=== PATIENT | male | born 2000 | race African-American/Black ===

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

== ENCOUNTER 2021-02-13 22:14 | Emergency (ER) | payer OTHER, SELFPAY ==
[2021-02-13 23:11] VITALS: BP 130/67; PULSE 79; RESP 16; TEMP 36.6; O2SAT 100; BMI 30.7
--- NOTE | 2021-02-13 23:22 | ED.WOUNDLAC ---
HPI - Wound/Laceration General Chief Complaint: Wound/Laceration Stated Complaint: lt thumb lac Time Seen by Provider: 02/13/21 23:22 Source: patient and family Mode of arrival: ambulatory Limitations: no limitations History of Present Illness HPI narrative: 20-year-old male presents with laceration to the left thumb. Stated that he reach into a drawer and accidentally stabbed himself on a pair of open scissors. Father data analysis assistant son cleaning of wound and applying a pressure dressing. Onset (ago): hour(s) (Within the hour of arrival) Extremity Location: left: hand (thumb) Place: home Patient tetanus UTD: Yes Context: accidental Associated symptoms: pain Treatments prior to arrival: bandage Related Data Home Medications Medication Instructions Recorded Confirmed No Known Home Meds 11/23/20 11/23/20 Allergies Allergy/AdvReac Type Severity Reaction Status Date / Time No Known Allergies Allergy Verified 11/23/20 18:44 Review of Systems Review of Systems: Constitutional: No Fever, No Chills ENT/Mouth: No Ear Pain, No Hoarseness, No sore throat Eyes: No Eye Pain, No Swelling, No Redness, No Foreign Body Cardiovascular: No Chest Pain, No SOB Respiratory: No Cough, No Dyspnea Gastrointestinal: No Nausea, No Vomiting, No Diarrhea, No abdominal Pain Genitourinary: No Dysuria, No Hematuria Musculoskeletal: positive some pain, No Myalgias, No Joint Swelling Skin: Positive laceration to the left thumb,No rash Neuro: No Weakness, No Numbness, No Paresthesias, No Loss of Consciousness, No Dizziness, No Headache Psych: No Anxiety/Panic, No Depression Heme/Lymph: no easy bruising, no Lymphadenopathy Endocrine: No Polyuria, No Polydipsia Yes all other systems are reviewed and are negative [facility] Past Medical History Attestation statement: The following information was validated with the patient. Source: old records reviewed Medical History HTN (hypertension) Subaortic membrane Surgical History [place] teeth extracted Family History Family History Other Diabetes HTN (hypertension) Social History Social History Household Members: Family Housing: House Do you presently have visiting nurse or other home services: No Alcohol intake: never Patient Tobacco Use Status: Never used Tobacco Substance Use Type: Marijuana Advance Directives: No service: No Current occupational status: student Physical Exam Vital Signs: Vital Signs: Last Vital Signs Temp 97.8 F 02/13/21 23:11 Pulse 79 02/13/21 23:11 Resp 16 02/13/21 23:11 BP 130/67 02/13/21 23:11 Pulse Ox 100 02/13/21 23:11 BMI result Body Mass Index 30.7 Appearance: Alert. Oriented X3. Anxious. Eyes: Pupils equal, round and reactive to light. ENT: Pharynx normal. Neck: Normal inspection. Neck supple. CVS: Normal heart rate and rhythm. Pulses normal. Respiratory: No respiratory distress. Breath sounds normal. Abdomen: Soft and nontender. Skin: 4 cm laceration irregular to the left thumb, 1 cm laceration to the left thumb, Skin warm and dry. Normal skin color. Normal skin turgor. Extremities: Strength 5/5 to all digits, full range of motion to the thumb, no indication of tendon injury. Able to flex, extend, abduct and abduct without difficulty. Brisk capillary. Neuro: No motor deficit. No sensory deficit. Cranial nerves 2-12 intact. Extrem: Hand/finger images: 1. 4 cm irregular laceration 2. 1 cm linear laceration Course Course Course Narrative: 20-year-old male presents with 2 lacerations to the left thumb. Patient has a known needle phobia has significant anxiety and panic. Emotional support was provided. Digital block completed without difficulty tolerated well. Father was bedside throughout the entire procedure. Lacerations repaired without difficulty. Prepped and draped in sterile fashion. Irrigated with copious amounts of normal saline. Betadine cleanse. Approximately 30 minutes status post laceration repair, patient continues with brisk capillary refill and has full range of motion with no indication of tendon deficit. Patient will follow-up sutures removed. Patient verbalizes understanding of and agrees to plan of care discharge home MDM - Wound/Laceration Differential Diagnosis Differential diagnosis: Likely laceration Medical Records Attestation: I reviewed the patient's medical records. Procedures Laceration Laceration 1: Site: upper extremity (Left thumb) Side (If applicable): left Size (cm): 4 Description: irregular Depth: simple, single layer Local Anesthetic: lidocaine 2% Amount of anesthesia used (mL): 5 Pre-repair: wound explored, irrigated extensively and deep structures intact Skin layer closed with: nylon Size (cm): 4-0 Number of sutures: 6 Technique: simple, interrupted Laceration 2: Site: upper extremity (Left thumb) Side (If applicable): left Size (cm): 1 Description: linear Depth: simple, single layer Pre-repair: wound explored, irrigated extensively and deep structures intact Skin layer closed with: nylon Size (cm): 4-0 Number of sutures: 2 Technique: simple, interrupted Discharge Plan Discharge Clinical Impression: Laceration Patient Disposition: Home, Self-Care Instructions: Care For Your Stitches (ED), Finger Laceration (ED) Additional Instructions: You were evaluated for laceration to the left thumb. Please return in 10 days for suture removal. Keep the area clean and dry. You may wash your hands as needed. Do not soak your hand in water for prolonged periods of time. Do not swim or go into a hot tub until sutures are removed. Thank you for choosing this emergency department for evaluation. Please follow-up with primary care physician as needed. Return to the emergency department for any new, concerning, or worsening symptoms. Prescriptions: No Action No Known Home Meds RF: 0 Interventions: ED Discharge Assessment Last Done: 02/14/21 00:30 Discharge Date/Time: 02/14/21 00:32
[2021-02-14] MEDS: Lidocaine HCl 2 % MPF 5 ML VIAL SUBCUT (00:30)
== END 2021-02-14 00:32 | disposition home or self-care (01) ==
PROVIDERS: Emergency Provider Internal Medicine; PCP Pediatrics
DX: S61.012A Laceration without foreign body of left thumb without damage to nail, initial encounter (principal); W26.8XXA Contact with other sharp object(s), not elsewhere classified, initial encounter; Y93.9 Activity, unspecified; Y92.009 Unspecified place in unspecified non-institutional (private) residence as the place of occurrence of the external cause; Y99.9 Unspecified external cause status
CPT/HCPCS: 12002; 90471; 99283; 99284

== ENCOUNTER 2021-02-22 16:38 | Emergency (ER) | payer OTHER, SELFPAY ==
[2021-02-22 16:47] VITALS: BP 139/75; PULSE 68; RESP 16; TEMP 36.6; O2SAT 96; BMI 31.5
--- NOTE | 2021-02-22 16:55 | ED.WOUNDLAC ---
HPI - Wound/Laceration General Chief Complaint: Wound/Laceration Stated Complaint: stitch removal Time Seen by Provider: 02/22/21 16:55 History of Present Illness HPI narrative: Patient here for removal of stitches that were placed in his left hand 1 week ago he has no complaints Related Data Home Medications Medication Instructions Recorded Confirmed No Known Home Meds 11/23/20 11/23/20 Allergies Allergy/AdvReac Type Severity Reaction Status Date / Time No Known Allergies Allergy Verified 11/23/20 18:44 Review of Systems Review of Systems: Denies fever chills no joint pains no redness no swelling no discharge from wound Yes all other systems are reviewed and are negative PMFSH Past Medical History Source: nursing notes reviewed Medical History HTN (hypertension) Subaortic membrane Surgical History [place] teeth extracted Family History Family History Other Diabetes HTN (hypertension) Social History Social History Household Members: Family Housing: House Do you presently have visiting nurse or other home services: No Alcohol intake: never Patient Tobacco Use Status: Never used Tobacco Substance Use Type: Marijuana Advance Directives: No Advance Directives Information Provided: Yes service: No Current occupational status: student Physical Exam Vital Signs: Vital Signs: Last Vital Signs Temp 98 F 02/22/21 16:47 Pulse 68 02/22/21 16:47 Resp 16 02/22/21 16:47 BP 139/75 02/22/21 16:47 Pulse Ox 96 02/22/21 16:47 BMI result Body Mass Index 31.5 General appearance no distress Head is normocephalic atraumatic Neck is supple Respiratory no distress Extremities full range of motion x4 Left hand palmar surface there are sutures in place with no swelling no discharge no redness and full range of motion in all fingers Course Course Course Narrative: are removed with no wound dehiscence, no sign of infection Discharge Plan Discharge Clinical Impression: Visit for suture removal Patient Disposition: Home, Self-Care Additional Instructions: Sutures were removed and okay for all activities Return any concerns Prescriptions: No Action No Known Home Meds RF: 0 Interventions: ED Discharge Assessment Last Done: 02/22/21 17:07 Discharge Date/Time: 02/22/21 17:08
== END 2021-02-22 17:08 | disposition home or self-care (01) ==
PROVIDERS: Emergency Provider Internal Medicine; PCP Pediatrics
DX: Z48.02 Encounter for removal of sutures (principal); F12.90 Cannabis use, unspecified, uncomplicated
CPT/HCPCS: 99283

== ENCOUNTER 2021-03-04 14:11 | Outpatient (REF) | payer OTHER, SELFPAY ==
[2021-03-04 15:00] LABS: Binax Internal Control QC Valid; Binax Now Covid-19 Ag Negative (Negative)
== END 2021-03-04 14:12 | disposition home or self-care (01) ==
LOC: HO.LAB 14:11
PROVIDERS: Visit Provider Internal Medicine
DX: Z20.822 Contact with and (suspected) exposure to COVID-19 (principal)
CPT/HCPCS: C9803

== ENCOUNTER 2022-01-19 08:22 | Outpatient (REF) | payer OTHER, SELFPAY ==
[2022-01-19 12:19] LABS: Anion Gap 15 (12-20); Blood Urea Nitrogen 16 mg/dL (9-16); Calcium 9.9 mg/dL (8.4-10.2); Carbon Dioxide 26 mmol/L (22-29); Chloride 102 mmol/L (96-108); Cholesterol 179 mg/dL; Estimated Glomerular Filt Rate > 60; Glucose Fasting 88 mg/dL (60-99); HDL Cholesterol 41 mg/dL; LDL Cholesterol Calculated 122 mg/dl; Potassium 4.3 mmol/L (3.3-5.1); Sodium 139 mmol/L (135-145); Triglycerides 83 mg/dL
== END 2022-01-19 08:23 | disposition home or self-care (01) ==
LOC: HO.10HDL 08:22
PROVIDERS: Visit Provider Psychiatry & Neurology Neurology
DX: I67.9 Cerebrovascular disease, unspecified (principal)
CPT/HCPCS: 36415; 80048; 80061

== ENCOUNTER 2023-10-13 09:56 | Outpatient (AMB) | payer OTHER, SELFPAY ==
--- NOTE | 2023-10-13 10:01 | MHC.PC.OV ---
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 Cerebral microangiopathy. Autism & ADHD. SurgHx: Hydronephrosis and surgery. FHx: Mom: Depression/Anxiety, HTN, Colon Polyp. Dad: Asthma, obesity. GM: Early Colon CA. SocHx: Quit Cigs about 1 yr ago. EtOH none. No drugs PFSH Medical History (Updated 10/13/23 @ 11:09 by Min Flores) ADHD Subaortic membrane HTN (hypertension) Surgical History [place] teeth extracted Family History (Updated 10/13/23 @ 11:12 by Min Flores) Father Asthma Maternal Grandfather Asthma Other Diabetes FH: mental illness High blood pressure Social History (Updated 10/13/23 @ 10:01 by Min Flores) Household Members: Family Housing: House Do you presently have visiting nurse or other home services: No Alcohol intake: never Patient Tobacco Use Status: Never used Tobacco e-Cigarette/Vaping Use: Former Use Second Hand Smoke Exposure: No service: No Current occupational status: student Cognitive needs: Yes (autism/ADHD ) Hearing needs: No Vision needs: Yes Questionnaire PHQ-9 Over the last 2 weeks, how often have you been bothered by any of the following problems? 1. Little interest or pleasure in doing things: not at all 2. Feeling down, depressed, or hopeless: not at all 3. Trouble falling or staying asleep, or sleeping too much: not at all 4. Feeling tired or having little energy: several days 5. Poor appetite or overeating: not at all 6. Feeling bad about yourself - or that you are a failure or have let yourself or your family down: not at all 7. Trouble concentrating on things, such as reading the newspaper or watching television: not at all 8. Moving or speaking so slowly that other people could have noticed. Or the opposite - being so fidgety or restless that you have been moving around a lot more than usual: several days 9. Thoughts that you would be better off or of hurting yourself in some way: not at all Total score: 2 Depression Screening Interpretation: Negative Depression Screening Done: Yes [id number] - PHQ-9 Billing: Yes Source: Developed by Drs. Julio C Grullon, Ivelisse Beach, Roni Stout and colleagues, with an educational armando from [employer]. Thrive Questionnaire Date Thrive assessed: 10/13/23 I am a: Patient What is your living situation today?: I have a steady place to live Within the past 12 months, did the food you bought not last and you didn't have the money to get more?: Never true Within the past 12 months, did you worry whether your food would run out before you got money to buy more?: Never true Do you have trouble paying for medicines?: No Do you have trouble getting transportation to medical appointments?: No Do you have trouble paying your heating and electricity bill?: No Do you have trouble taking care of your child, family member or friend?: No Do you have trouble with day-to-day activities such as bathing, preparing meals, shopping, managing finances, etc.?: No Are you currently unemployed and looking for a job?: Yes Are you interested in more education?: No Please select the resources that you would like help with: None Currently or been in a relationship where the following occur: No concerns reported THRIVE Score: 0 AUDIT C Alcohol Use Questionnaire (AUDIT-C) 1. How often do you have a drink containing alcohol?: Never 3. How often do you have six or more drinks on one occasion?: Never Total Score: 0 Score Reviewed/Action Taken: Yes SILVIO-7 AMB Questionnaire SILVIO-7 Date SILVIO - 7 assessed: 10/13/23 Feeling nervous, anxious, or on edge: 0 = Not at all Not being able to stop or control worryin = Not at all Worrying too much about different things: 0 = Not at all Trouble relaxin = Not at all Being so restless that it is hard to sit still: 0 = Not at all Becoming easily annoyed or irritable: 2 = More than half the days Feeling afraid as if something awful might happen: 0 = Not at all Total SILVIO-7 score (0-4 normal; 5-9 mild; 10-14 moderate; 15-21 severe): 2 Source: Developed by Drs. Julio C Grullon, Ivelisse Beach, Roni Stout and colleagues, with an educational armando from [employer]. SILVIO-7 Assessment Billing SILVIO-7 Assessment Tool: SILVIO-7 Assessment 81690 Review of Systems Const Denies chills, Denies fatigue, Denies fever(s), Denies headache(s) and Denies weakness ENT Denies dizziness and Denies headache(s) Card Denies chest pain, Denies lightheadedness, Denies dyspnea and Denies other (Palpitations) Resp Denies cough, Denies dyspnea, Denies wheezing and Denies other ( shortness of breath) Musc Denies numbness and Denies tingling Neuro Denies dizziness, Denies headache(s), Denies numbness, Denies tingling, Denies paresthesias and Denies weakness Psych Denies anxiety and Denies depression Endo Denies fatigue Aller/Immun Denies wheezing Physical exam (Primary Care) Vital Signs: Last Vital Signs Temp 97.7 F 10/13/23 10:09 Pulse 87 10/13/23 10:09 Resp 18 10/13/23 10:09 BP 116/70 10/13/23 10:09 Pulse Ox 97 10/13/23 10:09 Oxygen Delivery Method Room Air 10/13/23 10:09 BMI result Body Mass Index 39.2 Tobacco/Smoking Status: Tobacco use Status Tobacco use date assessed 10/13/23 10/13/23 10:12 Patient Tobacco Use Status Never used Tobacco 10/13/23 10:04 e-Cigarette/Vaping Use Former Use 10/13/23 10:12 PHQ-9: PHQ-9 Score PHQ-9: Total score 2 10/13/23 10:38 Depression Screening Interpretation: Negative Thrive Assessment: Date of Thrive Assessment Date Thrive assessed 10/13/23 10/13/23 10:04 Currently or been in a relationship where the following occur: No concerns reported Const General: no acute distress and well developed Nutritional Appearance: well nourished Orientation/consciousness: patient oriented x3 HENMT Head: Yes normocephalic and Yes atraumatic Eyes General: appearance normal, both eyes and all related structures Pupils: Equal, round and reactive pupils present EOM: EOMs intact bilaterally Resp Effort & Inspection: normal respiratory effort Auscultation: clear to auscultation bilaterally Cardio Rate: regular rate Rhythm: regular rhythm Heart sounds: S1 normal heart sound present, S2 normal heart sound present, no gallops, Murmur heart sound present and no rubs Neuro General: patient oriented x3 and gait normal Cranial nerves: Yes Equal, round and reactive pupils present Psych Affect: normal affect Assessment and Plan Assessment & Plan (1) HTN (hypertension): Comment: Patient stopped taking his medications Code(s): I10 - Essential (primary) hypertension Plan: Patient?was?on?lisinopril-hydrochlorothiazide.??He?does?not?know?the?dose?and?did?not?bring?the?medication?with?him. Checking?with?his?pharmacy?and?we?can?add?this?in Encouraged?him?to?take?his?medication?consistently. (2) Obesity: Code(s): E66.9 - Obesity, unspecified Plan: Will?address?at?subsequent?visits. (3) Autism: Code(s): F84.0 - Autistic disorder Plan: Stable (4) Difficulty concentrating: Code(s): R41.840 - Attention and concentration deficit Plan: Mom?notes?history?of?ADHD.??He?had?been?on?medication?in?the?past.??Given?that?he?may?have?issues?with?microangiopathy?and?hypertension.??Would?recommend?he?have?a?specialist?if?he?is?needing?medication?for?this. (5) Subaortic membrane: Comment: Subaortic stenosis present since . 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 Patient?has?2/6?systolic?murmur?over?mitral?and?aortic?regions Will?check?echo (6) Heart murmur: Code(s): R01.1 - Cardiac murmur, unspecified Plan: As?above (7) Laboratory exam ordered as part of routine general medical examination: Code(s): Z00.00 - Encounter for general adult medical examination without abnormal findings Plan: Check?labs Plan Patient?describes?history?of?microangiopathy?and?had?been?followed?by?Neurology,?initially?for?ataxic?gait?which?resolved. He?is?on?lisinopril-hydrochlorothiazide. Will?start?a?low?dose?of?atorvastatin?as?well. Orders: Orders Lipid Panel Today Z00.00 - Encounter for general adult medical examination without abnormal findings TSH reflex Free T4 Today Z00.00 - Encounter for general adult medical examination without abnormal findings HIV Ab/Ag Today Z11.3 - Encounter for screening for infections with a predominantly sexual mode of transmission Vitamin B12 and Folate Today E53.8 - Deficiency of other specified B group vitamins Complete Blood Count Auto Diff Today Z00.00 - Encounter for general adult medical examination without abnormal findings Comprehensive [place]. 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
[2023-10-13 10:09] VITALS: BP 116/70; PULSE 87; RESP 18; TEMP 36.5; O2SAT 97; BMI 39.2
== END 2023-10-13 11:06 | disposition home or self-care (01) ==
PROVIDERS: PCP Family Medicine; Visit Provider Family Medicine
DX: I10 Essential (primary) hypertension (principal); E66.9 Obesity, unspecified; Z68.39 Body mass index [BMI] 39.0-39.9, adult; F84.0 Autistic disorder; R41.840 Attention and concentration deficit; Q24.4 Congenital subaortic stenosis; R01.1 Cardiac murmur, unspecified
CPT/HCPCS: 99203

== ENCOUNTER 2023-10-21 08:23 | Outpatient (REF) | payer OTHER, SELFPAY ==
[2023-10-21 08:50] LABS: MANUAL DIFF FLAG NO
[2023-10-21 09:07] LABS: Basophils Absolute Auto 0.1 X10*3/uL (0.0-0.2); Eosinophils Absolute Auto 0.1 X10*3/uL (0.0-0.4); Hematocrit 44.5 % (42.0-52.0); Hemoglobin 16.2 g/dl (14.0-18.0); Imm Gran Abs Auto 0.04 X10*3/uL (0.00-0.03); Imm Gran Pct Auto 0.6 % (0.0-0.4); Lymphocytes Absolute Auto 1.9 X10*3/uL (1.2-4.9); Lymphocytes Percent Auto 28.6 % (20-40); Mean Corpuscular HGB Conc 36.4 g/dl (31.0-36.0); Mean Corpuscular Hemoglobin 30.3 pg (27.0-33.0); Mean Corpuscular Volume 83.2 fL (80.0-98.0); Mean Platelet Volume 11.5 fL (9.4-12.4); Monocytes Absolute Auto 0.5 X10*3/uL (0.1-1.2); Monocytes Percent Auto 7.8 % (2-11); Neutrophils Absolute Auto 4.1 x10*3/uL (2.0-8.3); Platelet Count 204 X10*3/uL (160-400); Red Blood Count 5.35 X10*6/uL (4.60-5.80); Red Cell Distribution Width 12.1 % (11.0-16.0); White Blood Count 6.7 X10*3/uL (4.8-10.8)
[2023-10-21 09:49] LABS: Alanine Aminotransferase 100 U/L (0-40); Albumin Level 4.6 g/dL (3.5-5.0); Alkaline Phosphatase 107 U/L (39-117); Anion Gap 10 (12-20); Aspartate Amino Transferase 37 U/L (5-37); Bilirubin Total 0.5 mg/dL (0.0-1.0); Blood Urea Nitrogen 13 mg/dL (9-16); Calcium 9.8 mg/dL (8.4-10.2); Carbon Dioxide 27 mmol/L (22-29); Chloride 106 mmol/L (96-108); Cholesterol 156 mg/dL (<200); Estimated Glomerular Filt Rate > 60; Glucose Fasting 96 mg/dL (60-99); HDL Cholesterol 28 mg/dL (>40); LDL Cholesterol Calculated 110 mg/dL (<100); Potassium 4.1 mmol/L (3.3-5.1); Sodium 139 mmol/L (135-145); Total Protein 7.5 g/dL (6.5-8.0); Triglycerides 93 mg/dL (<150)
[2023-10-21 09:52] LABS: TSH reflex Free T4 2.13 uIU/mL (0.32-4.0)
[2023-10-21 09:57] LABS: HBS Num1 1.13 mIU/mL (0-7.99); HBc Num1 0.08 S/CO (0.00-0.79); HIV AB/AG Nonreactive (Nonreactive); HIV Num 1 0.05 S/CO (0.00-0.99); Hepatitis B Core Antibody Nonreactive (Nonreactive); Hepatitis B Surface Antigen Negative (Negative); ~HepC Num1 0.15 S/CO (0.00-0.79); ~Hepatitis B Surface Antibody NONREACTIVE (Nonreactive); ~Hepatitis C Antibody Nonreactive (Nonreactive)
[2023-10-21 09:58] LABS: Syphilis Screen Nonreactive (Nonreactive)
[2023-10-21 10:01] LABS: Folate 8.4 ng/mL (> or = 4.0); Vitamin B12 679 pg/mL (200-900)
[2023-10-21 12:45] LABS: Creatinine Urine 169.31 mg/dL; Microalbum/Creatinine Ratio Ur 34.8 ug/mg cr (<30)
== END 2023-10-21 08:24 | disposition home or self-care (01) ==
LOC: HO.LAB 08:23
PROVIDERS: PCP Family Medicine; Visit Provider Family Medicine
DX: Z00.00 Encounter for general adult medical examination without abnormal findings (principal); E53.8 Deficiency of other specified B group vitamins; Z11.3 Encounter for screening for infections with a predominantly sexual mode of transmission; I10 Essential (primary) hypertension
CPT/HCPCS: 36415; 80053; 80061; 82043; 82570; 82607; 82746; 84443; 85025; 86704; 86706; 86780; 86803; 87340; 87389

== ENCOUNTER → 2023-11-25 07:49 | Outpatient (REF) | payer OTHER, SELFPAY ==
--- NOTE | 2023-11-25 07:52 | CA_ITS ---
Transthoracic Echocardiogram Patient (Last, First, Middle): Brandon Mujica, Gender: Male Date of : 2000 Age: 22 Procedure Date: 11/25/2023 Procedure Type: Transthoracic Echocardiogram Location: OP Height: 182.88 cm Weight: 127.01 kg BSA: 2.46 m2 Heart Rate: bpm BP: 130 / 82 mmHg Stone Breaker: TO Referring MD: Óscar Galaviz MD Contact Center Team Lead: Amrit Urena MD Symptoms: R01.1 - Cardiac murmur, unspecified Study Quality: Technically Difficult/Contrast ECG Rhythm: Sinus Conclusions: - 1. Technically limited study 2. Normal LV ejection fraction 65-70% 3. Cardiac valvular Doppler was within normal limits Findings Procedure Information The study quality is limited by the patients inability to tolerate the test and patients body habitus. Left Ventricle Normal left ventricular size, thickness, and systolic function. The visually estimated ejection fraction is between 65-70%. Spectral Doppler is indicative of a normal filling pattern. Right Ventricle Normal right ventricular cavity size and systolic function. Atria The left atrium is normal in size. Interatrial shunt cannot be excluded. The right atrium was not well visualized. Aortic Valve The aortic valve was not well visualized. There is no aortic valve stenosis. There is no aortic valve regurgitation. Mitral Valve Likely normal mitral valve structure and function. There is no mitral valve regurgitation. There is no mitral valve stenosis. Pulmonic Valve The pulmonic valve was not well visualized. Tricuspid Valve The tricuspid valve was not well visualized. Tricuspid regurgitation envelope is inadequate for calculation of right ventricular systolic pressure. Great Vessels All visible segments of the aorta are normal in size. The pulmonary artery was not well visualized. There is no dilatation of the ascending aorta measuring 2.00 cm. Venous The inferior vena cava is normal in size. Pericardium/Pleural The pericardium was not well visualized. Prior Study Comparison No prior study available for comparison. Measurements 2D Linear Measurements IVSd: 0.90 0.6-0.9/0.6-1.0 cm LVIDd: 4.65 3.9-5.3/4.2-5.9 cm LVIDd Index: 1.89 2.4-3.2/2.2-3.1 cm/m2 LVIDs: 2.65 2.0-3.6 cm LVPWd: 0.99 0.7-1.1 cm LA Diam: 3.50 2.7-3.8/3.0-4.0 cm LAIDs Index: 1.42 1.5-2.3 cm/m2 LV Mass: 187.28 67-162/88-224 g LV Mass Index: 76.13 43-95/49-115 g/m2 LVOT Diam: 2.10 3.0+(-)1.3 cm 2D Systolic Function EF 4C: 64.20 >55% EF 2C: 65.50 >55% EF BiP: 66.00 >55% Mitral Valve MV Pk E: 0.89 MV PK A: 0.42 MV Decel Time: 192.00 E/A: 2.10 E'Lateral: 13.10 E'Medial: 12.40 E/E' Med: 7.20 E/E' Lat: 6.80 PHT: 56.00 MVA PHT: 3.93 Decel [place]: 4.62 Aortic Valve AoV Pk Amandeep: 1.95 AoV Mn Amandeep: 1.27 AoV VTI: 0.38 AoV Pk Grad: 15.00 Aov Mn Grad: 8.00 HALLEY Cont.VTI: 3.33 LVOT LVOT Pk Amandeep: 1.94 LVOT Mn Amandeep: 1.21 LVOT VTI: 0.36 LVOT Pk Grad: 15.00 LVOT Mn Grad: 7.00 LVOT Diam: 2.10 LVOT Area: 3.46 Diastolic Function MV Pk E: 0.89 MV Pk A: 0.42 E/A: 2.10 E'Medial: 12.40 E/E' Med: 7.20 E' Laterial: 13.10 E/E' Lat: 6.80 Right Ventricle TAPSE (mm): 24.40 TVS' Amandeep: 12.70 Tricuspid Valve RA Press: 3.00 Great Vessels Aorta Sinus of Valsalva: 2.77 2.0-3.[address] [place]: 2.24 1.7-3.4 cm Ao Asc: 2.00 2.1-3.4 cm Ao Arch: 2.70 Updated in Other Vendor System with Status of Final Amrit Urena MD electronically signed on 11/25/2023 1:56:02 PM with status of Final
== END ==
LOC: HO.CARD 07:49
PROVIDERS: PCP Family Medicine; Visit Provider Family Medicine
DX: R01.1 Cardiac murmur, unspecified (principal); Q24.4 Congenital subaortic stenosis
CPT/HCPCS: 93306; Q9957

== ENCOUNTER → 2023-11-25 07:52 | Outpatient (BNV) | payer OTHER, SELFPAY | PROVIDERS: PCP Family Medicine; Visit Provider Internal Medicine Cardiovascular Disease | DX: R01.1 Cardiac murmur, unspecified (principal) | CPT/HCPCS: 93306 ==

== ENCOUNTER 2024-04-18 08:58 | Outpatient (AMB) | payer OTHER, SELFPAY ==
--- NOTE | 2024-04-18 09:18 | MHC.PC.OV ---
Vital Signs 04/18/24 09:22 Height 6 ft Weight 275 lb 6 oz BMI 37.3 BP 116/66 Blood Pressure Location Rt brachial Position Sitting Respiration 14 Pulse 63 Pulse Source Pulse Oximeter Temp 98.4 F Temp Source Oral Pulse Oximetry (%) 98 Oxygen Delivery Method Room Air Intake Visit Reasons: Annual physical Intake Note: Annual Skills Auditor Required: No Allergies No Known Allergies Allergy (Verified 04/18/24 09:21) Tobacco use date assessed: 04/18/24 Dental Screening Dental Screen Date: 04/18/24 Did you have a dental visit in the last 12 months?: Yes Did you have a dental problem in the last 6 months where you did not have access to dental care?: No Was dental information given to patient?: No HPI Annual physical HPI Details 23 y/o male presents for a CPE with f/u labs and health maintenance. Labs drawn 10/21/23. Reviewed labs with pt. Elevated ALT of 100. Triglycerides 93. TC 156. LDL 110. HDL low at 28. He is on artovastatin 10mg daily. Blood pressure today 116/66, 63p. He is prescribed lisinopril-HCTZ 10-12.5mg daily. [facility] Medical History (Updated 04/18/24 @ 09:32 by Freddy Shrestha) ADHD Subaortic membrane HTN (hypertension) Surgical History [place] teeth extracted Family History (Updated 10/13/23 @ 11:12 by SPENCER Smiley) Father Asthma Maternal Grandfather Asthma Other Diabetes FH: mental illness High blood pressure Social History (Updated 10/13/23 @ 10:01 by SPENCER Smiley) Household Members: Family Housing: House Do you presently have visiting nurse or other home services: No Alcohol intake: never Patient Tobacco Use Status: Never used Tobacco e-Cigarette/Vaping Use: Former Use Second Hand Smoke Exposure: No service: No Current occupational status: student Cognitive needs: Yes (autism/ADHD ) Hearing needs: No Vision needs: Yes Questionnaire PHQ-9 Over the last 2 weeks, how often have you been bothered by any of the following problems? 1. Little interest or pleasure in doing things: not at all 2. Feeling down, depressed, or hopeless: not at all 3. Trouble falling or staying asleep, or sleeping too much: not at all 4. Feeling tired or having little energy: not at all 5. Poor appetite or overeating: not at all 6. Feeling bad about yourself - or that you are a failure or have let yourself or your family down: not at all 7. Trouble concentrating on things, such as reading the newspaper or watching television: several days 8. Moving or speaking so slowly that other people could have noticed. Or the opposite - being so fidgety or restless that you have been moving around a lot more than usual: not at all 9. Thoughts that you would be better off or of hurting yourself in some way: not at all Total score: 1 Depression Screening Interpretation: Negative Depression Screening Done: Yes 50979 - PHQ-9 Billing: Yes Source: Developed by Drs. Julio C Grullon, Ivelisse Beach, Roni Stout and colleagues, with an educational armando from [employer]. Thrive Questionnaire Date Thrive assessed: 04/18/24 I am a: Patient What is your living situation today?: I have a steady place to live Within the past 12 months, did the food you bought not last and you didn't have the money to get more?: Never true Within the past 12 months, did you worry whether your food would run out before you got money to buy more?: Sometimes True Do you have trouble paying for medicines?: No Do you have trouble getting transportation to medical appointments?: No Do you have trouble paying your heating and electricity bill?: No Do you have trouble taking care of your child, family member or friend?: No Do you have trouble with day-to-day activities such as bathing, preparing meals, shopping, managing finances, etc.?: No Are you currently unemployed and looking for a job?: Yes Are you interested in more education?: No Please select the resources that you would like help with: Job search/training Currently or been in a relationship where the following occur: No concerns reported THRIVE Score: 1 AUDIT C Alcohol Use Questionnaire (AUDIT-C) 1. How often do you have a drink containing alcohol?: Never 3. How often do you have six or more drinks on one occasion?: Never Total Score: 0 Score Reviewed/Action Taken: Yes SILVIO-7 AMB Questionnaire SILVIO-7 Date SILVIO - 7 assessed: 04/18/24 Feeling nervous, anxious, or on edge: 0 = Not at all Not being able to stop or control worryin = Not at all Worrying too much about different things: 0 = Not at all Trouble relaxin = Several days Being so restless that it is hard to sit still: 0 = Not at all Becoming easily annoyed or irritable: 1 = Several days Feeling afraid as if something awful might happen: 0 = Not at all Total SILVIO-7 score (0-4 normal; 5-9 mild; 10-14 moderate; 15-21 severe): 2 Source: Developed by Drs. Julio C Grullon, Ivelisse Beach, Roni Stout and colleagues, with an educational armando from [employer]. SILVIO-7 Assessment Billing SILVIO-7 Assessment Tool: SILVIO-7 Assessment 95302 Review of Systems Const Denies chills, Denies fatigue, Denies fever(s), Denies headache(s) and Denies weakness Eyes Denies change in vision ENT Denies dizziness and Denies headache(s) Card Denies chest pain, Denies lightheadedness, Denies dyspnea and Denies other (Palpitations) Resp Denies cough, Denies dyspnea, Denies wheezing and Denies other ( shortness of breath) GI Denies abdominal pain, Denies melena, Denies hematochezia, Denies change in bowel habits, Denies dyspepsia and Denies nausea Denies hematuria and Denies dysuria Musc Denies numbness and Denies tingling Skin/Breast Denies rash, Denies unusual bruising and Denies wounds Neuro Denies dizziness, Denies headache(s), Denies numbness, Denies Sensory deficit (Neuro), Denies tingling, Denies paresthesias and Denies weakness Psych Denies anxiety and Denies depression Endo Denies fatigue Sae/Lymph Denies easy bleeding and Denies easy bruising Aller/Immun Denies wheezing Physical exam (Primary Care) Tobacco/Smoking Status: Tobacco use Status Tobacco use date assessed 10/13/23 04/18/24 09:18 Patient Tobacco Use Status Never used Tobacco 04/18/24 09:18 e-Cigarette/Vaping Use Former Use 04/18/24 09:18 PHQ-9: PHQ-9 Score PHQ-9: Total score 1 04/18/24 09:18 Depression Screening Interpretation: Negative Thrive Assessment: Date of Thrive Assessment Date Thrive assessed 10/13/23 04/18/24 09:18 Currently or been in a relationship where the following occur: No concerns reported Const General: no acute distress and well developed Nutritional Appearance: well nourished Orientation/consciousness: patient oriented x3 HENMT Head: Yes normocephalic and Yes atraumatic Ears: hearing grossly normal bilaterally and TM's normal bilaterally General nose exam: Normal external nose present and Normal nares present Mouth: Normal oral and palatal mucosa present and moist mucous membranes Teeth and gingiva: dentition normal Throat: Yes posterior oropharynx normal Eyes General: appearance normal, both eyes and all related structures Pupils: Equal, round and reactive pupils present EOM: EOMs intact bilaterally Neck Neck: Yes normal visual inspection, Yes no lymphadenopathy and Yes trachea midline Thyroid: Thyroid normal Carotids: no bruits Lymphatic: no lymphadenopathy noted Chest Chest palpation & inspection: normal inspection of the chest Resp Effort & Inspection: normal respiratory effort Auscultation: clear to auscultation bilaterally Cardio Rate: regular rate Rhythm: regular rhythm Heart sounds: S1 normal heart sound present, S2 normal heart sound present, no gallops, no murmurs and no rubs Bruits: no abdominal aortic bruits and no carotid bruits GI Palpation (GI): No Abdominal aortic bruit present, Soft to palpation, nontender, No hepatosplenomegaly present and No Rebound tenderness present Auscultation: normal bowel sounds General: Yes no CVA tenderness Back/Spine/Pelvis Back: no CVA tenderness Cervical Spine: cervical ROM normal and No Cervical spine tenderness Thoracic/Lumbar Spine: thoraco-lumbar ROM normal, No pain with thoraco-lumbar ROM, No thoracic spinal tenderness and No lumbar spinal tenderness Skin Lesions: no lesions Rashes: no rashes Trauma: no lacerations or abrasions Wounds: no wounds Nails: normal Neuro General: patient oriented x3 and gait normal Cranial nerves: Yes Equal, round and reactive pupils present Cognition (Neuro): normal cognition Gait exam (Neuro): Normal gait present Motor exam (neuro): 5/5 motor strength present throughout Sensory Exam: No Sensory deficit (Neuro) Deep tendon reflexes (DTR's): Right patellar reflex intensity grade: 2+ and Left patellar reflex intensity grade: 2+ Extrem General: Yes normal to inspection and No edema Psych Appearance: grossly normal Affect: normal affect Attitude: cooperative Thought process: Normal thought process present Coding Level of Care Code Est Pt Level 3 (54897) Est Pt Prev Care 18-39y(96543) Diagnoses Adult general medical exam Z00.00 HTN (hypertension) I10 Elevated ALT measurement R74.01 Elevated LDL cholesterol level E78.00 Low HDL (under 40) E78.6 Additional Codes SILVIO-7 Assessment Billing - SILVIO-7 Assessment Tool: SILVIO-7 Assessment 50626 ([id number]) PHQ-9 - 49905 - PHQ-9 Billing: Yes ([id number]) Assessment & Plan Assessment & Plan (1) Adult general medical exam: Code(s): Z00.00 - Encounter for general adult medical examination without abnormal findings Category: Medical Plan: 23-year-old?male?presents?for?complete?physical?exam Encouraged?healthy?diet?with?active?lifestyle?and?plenty?of?exercise (2) HTN (hypertension): Code(s): I10 - Essential (primary) hypertension Category: Medical Plan: Blood?pressure?is?well?controlled.??Goal?is?less?than?130/80 Continue?current?medications (3) Elevated ALT measurement: Code(s): R74.01 - Elevation of levels of liver transaminase levels Category: Medical Plan: Elevated?ALT Patient?does?not?drink?or?use?much?Tylenol He?is?obese Encouraged?weight?loss,?exercise?and?good?hydration Will?recheck?liver?enzymes (4) Elevated LDL cholesterol level: Code(s): E78.00 - Pure hypercholesterolemia, unspecified Category: Medical Plan: LDL?cholesterol?is?a?little?high?but?he?had?only?been?on?atorvastatin?week?when?labs?drawn. Will?repeat?this (5) Low HDL (under 40): Code(s): E78.6 - Lipoprotein deficiency Category: Medical Plan: Encouraged?exercise/active?lifestyle Orders: Orders Microalbumin, Random (w Creat) Today I10 - Essential (primary) hypertension Lipid Panel Today E78.00 - Pure hypercholesterolemia, unspecified, Z00.00 - Encounter for general adult medical examination without abnormal findings Comprehensive [place]. Panel Fast Today R74.01 - Elevation of levels of liver transaminase levels, Z00.00 - Encounter for general adult medical examination without abnormal findings
[2024-04-18 09:22] VITALS: BP 116/66; PULSE 63; RESP 14; TEMP 36.9; O2SAT 98; BMI 37.3
--- OUTSIDE RECORDS SUMMARY | 2024-04-18 09:42 | XMS_ITS | Encounter Summary ---
Author Organization [facility] Address [address] [place] [address] Phone Care Team Providers Care Instructional Design Consultant Name Role Phone Provider, Jhonatan ARAMBULA Primary Care Provider [phone] Encounter Details Date Type Department Care Team (Late st Contact Info) Description 01/20/2010 Documentation [facility] [place] Family Medicine [address] [place] [address] Family Medicine, Physician [address] [place] [address] Social History Tobacco Use Types Packs/Day Years Used Date Smoking Tobacco: Never Assessed Sex and Gender Information Value Date Recorded Sex Assigned at Male 04/23/2022 12:43 PM EST Legal Sex Male 5:02 PM EDT Gender Identity Male 04/23/2022 12:43 PM EST Sexual Orientation Not on file documented as of this encounter Plan of Treatment Not on file documented as of this encounter Visit Diagnoses Not on filedocumented in this encounter Care Teams Instructional Design Consultant Relationship Specialty Start Date End Date Provider, MD Jhonatan [address] [place] [address] PCP - General Pediatrics 09/30/22 12/22/22 documented as of this encounter
--- OUTSIDE RECORDS SUMMARY | 2024-04-18 09:42 | XMS_ITS | Encounter Summary ---
Author Organization [facility] Address [address] [place] [address] Phone Care Team Providers Care Foreman/Pile Driving And Erection Name Role Phone Provider, Jhonatan ARAMBULA Primary Care Provider [phone] Encounter Details Date Type Department Care Team (Late st Contact Info) Description 06/17/2009 Documentation [facility] [place] Family Medicine [address] [place] [address] Family Medicine, Physician [address] [place] [address] Social History Tobacco Use Types [...] on filedocumented in this encounter Care Teams Foreman/Pile Driving And Erection Relationship Specialty Start Date End Date Provider, MD Jhonatan [address] [place] [address] PCP - General Pediatrics 09/30/22 12/22/22 documented as of this encounter
--- OUTSIDE RECORDS SUMMARY | 2024-04-18 09:42 | XMS_ITS | Encounter Summary ---
Author Organization [facility] Address [address] [place] [address] Phone Care Team Providers Care Commercial Energy Rater Name Role Phone Provider, Jhonatan ARAMBULA Primary Care Provider [phone] Reason for Visit * Reason Comments Med Refill Encounter Details Date Type Department Care Team (Late st Contact Info) Description 09/01/2022 Refill [facility] [place] [address] [place] [address] Maylin Fine MD [address] [facility] [address] [place] [address] Hypertension, unspecified type (Primary Dx); Cerebral microvascular disease; Class 2 severe obesity due to excess calories with serious comorbidity and body mass index (BMI) of 37.0 to 37.9 in adult; On statin therapy Social History Tobacco Use Types Packs/Day Years Used Date Smoking Tobacco: Never Smokeless Tobacco: Never Comments:Never smoker Alcohol Use Standard Drinks/Week Comments Never 0 (1 standard drink = 0.6 oz pur e alcohol) Hunger/Food Answer Date Recorded In the last 12 months, did y ou or your family ever eat less than you felt you should because there wasn't enough money for food? No 04/22/2022 Stable Housing Answer Date Recorded Are you worried that in the next 2 months you may not have stable housing? No 04/22/2022 Transportation Concerns Answer Date Rec orded In the last 12 months, have you or your family ever had to go without healthcare because you didn't have a way to get there? No 04/22/2022 Hazards in Home Answer Date Recorded Think about the place you li ve. Do you have problems with any of the following? Pests (mice or roaches), mold, no/not working smoke detectors, water leaks, no window guards. No 2022 Financing Utilities Answer Date Recorde d In the last 12 months, has t he electric, gas, oil, or water company threatened to shut off your services in your home? No 04/22/2022 Safety at Home Answer Date Recorded Are you or your family worried about feeling saf e in your home? No 04/22/2022 Outside Support Answer Date Recorded Do you feel that you need mo re support from other people or programs to help you care for yourself or your family? No 04/22/2022 Understanding Health Concerns Answer Da te Recorded Do you need help understandi ng your or your child's healthcare needs (diagnosis, medications, plan, etc.)? No 04/22/2022 Financing Health Concerns Answer Date R ecorded In the last 12 months, was t here a time when your child needed to see a doctor or get medications or supplies but could not because of cost? No 04/22/2022 Missing School or Work Answer Date Humberto rded Did you or your child miss s chool or work because of a health problem that could have been avoided? No 04/22/2022 Sex and Gender Information Value Date Recorded Sex Assigned at Male 04/23/2022 12:43 PM EST Legal Sex Male 5:02 PM EDT Gender Identity Male 04/23/2022 12:43 PM EST Sexual Orientation Not on file documented as of this encounter Miscellaneous Notes * Telephone Encounter - Alexis Cross LPN - 09/02/2022 11:14 AM EDT Call placed regarding [place] message. Left message to call office regarding refill request * Telephone Encounter - Maylin Fine MD - 09/02/2022 11:09 AM EDT Rosuvastatin is a statin - a cholesterol lowering medication, and is not a drug class that we manage in Pediatrics. I will consider taking this over very briefly ( a singe 90 day RX) while mother isurgently searching for an adult provider to assume his full care. His blood pressure medication hasalways been prescribed by his glove examiner, but could most likely also be managed by his new adult PCP. I will need a current fasting lipid panel and liver function testing done before this can be refilled, so will enter the orders and mother can take Brandon to the lab this week. Then we should have a 15min virtual visit next week to discuss results and plan. * Telephone Encounter - Hari Campoverde LPN - 09/01/2022 1:53 PM EDT Spoke to Dr Alvarez's office and they state that he wants the primary to fill from now on. The note did not specify why. Also pt's mom is calling, she states that the insurance company is no longer dealing with [facility]. She would like scripts sent to [facility] on [facility]. * Telephone Encounter - Hari Campoverde LPN - 09/01/2022 11:56 AM EDT Spoke to pt's mom with pt's permission and she states that Dr Alvarez won't fill pt's blood pressuremedication and she doesn't know why. She states that Dr Alvarez also prescribed a cholesterol medication for pt and he filled that but won't fill the bp med. Mom also states that they have an apt withDr Alvarez this week.. Tried calling Dr Alvarez's office at [phone] but they are currently closed. Will try again after lunch. * Telephone Encounter - Hari Campoverde LPN - 09/01/2022 11:45 AM EDT Refill request for rosuvastatin 10 mg. This was not prescribed by us before. Spoke to pharmacy and they state that Dr Alvarez called and requested that this be sent to us. Left a message on pt's cell # as well to find out why this was sent to us to refill. Brandon cell # [phone] documented in this encounter Plan of Treatment Not on file documented as of this encounter Visit Diagnoses Diagnosis Hypertension, unspecified type- Primary Cerebral microvascular disease Unspecified cerebrovascular disease Class 2 severe obesity due to excess calories with serious comorbidity and body mass index (BMI) of 37.0 to 37.9 in adult On statin therapy documented in this encounter Care Teams Commercial Energy Rater Relationship Specialty Start Date End Date Provider, MD Jhonatan [address] [place] [phone] PCP - General Pediatrics 09/30/22 12/22/22 documented as of this encounter
--- OUTSIDE RECORDS SUMMARY | 2024-04-18 09:42 | XMS_ITS | Encounter Summary ---
Author Organization [facility] Address [address] [place] [phone] Phone Care Team Providers Care Stereotyper Helper Name Role Phone Provider, Jhonatan ARAMBULA Primary Care Provider [phone] Encounter Details Date Type Department Care Team (Late st Contact Info) Description 10/08/2016 Conversion Encounter [facility] [address] [place], [place] [id number] Social History Tobacco Use Types Packs/Day Years Used Date Smoking Tobacco: Never Comments:Never smoker Sex and Gender Information Value Date Recorded Sex Assigned at Male 04/23/2022 12:43 PM EST Legal Sex Male 5:02 PM EDT Gender Identity Male 04/23/2022 12:43 PM EST Sexual Orientation Not on file documented as of this encounter Plan of Treatment Not on file documented as of this encounter Visit Diagnoses Not on filedocumented in this encounter Care Teams Stereotyper Helper Relationship Specialty Start Date End Date Provider, MD Jhonatan [address] [place] [phone] PCP - General Pediatrics 09/30/22 12/22/22 documented as of this encounter
--- OUTSIDE RECORDS SUMMARY | 2024-04-18 09:42 | XMS_ITS | Clinical Summary ---
Author Organization [facility] Address [address] [place] [address] Phone Care Team Providers Care Member Of Parliament Name Role Phone Unavailable Primary Care Provider Unavailabl e Allergies No known active allergies Medications loratadine 10 MG tabletIndications:Seas onal and perennial allergic rhinoconjunctivitis of both eyes Take 1 tablet (10 mg total) by mouth daily. 30 tablet 11 08/30/19 21 Active Additional Information Patient not taking.Reported on 11/27/2020 lisinopril-hydrochloro thiazide 10-12.5 MG per tablet Take 1 tablet by mouth. 11/29/19 21 Active rosuvastatin 10 MG tablet Take 10 mg by mouth once daily. 02/25/19 23 Active Active Problems Problem Noted Date Diagnosed Date COVID-19 vaccination declined 04/23/2022 Medical non-compliance 04/23/2022 Overview (04/23/2022): Brandon's continued struggles with anti-hypertensive medication non-compliance despite his recent dx of CMVD worrisome. Cont to revisit. Refused influenza vaccine 02/05/2022 Overview (02/05/2022): See 12/17/2020 visit Assessment & Plan (04/22/2022 4:20 PM EST): Declined today Cerebral microvascular disease 11/28/2020 Overview (04/23/2022): 11/2020: [facility] admit for acute ataxia, self resolving, Lyme negative, oligoclonal bands on CSF+. MRI with findings of mild cerebral microvascular disease. Dr Alvarez/ Neurology [facility] following-last seen 01/2022 BP 140/80s, Brandon off his BP meds again. Normal BMP, TC 179, HDL 41- recommended statin ,resume BP meds RTC 6 mo Assessment & Plan (04/23/2022 12:08 PM EST): Still struggling with med compliance and BP elevated today, but no symptoms. Now on Rosuvastatin and tolerating well- started 01/[address] Alvarez/[facility] Neurologist. Next f/up planned 07/2022. Needle phobia 08/28/2020 Assessment & Plan (04/23/2022 12:31 PM EST): Compromised today on Brandon accepting the Men B vaccine, but declines recommended Flu and COVID Assessment & Plan (11/28/2020 9:22 AM EDT): Brandon refusing Flu vaccine today but will consider at pharmacy next week Essential hypertension 04/29/2017 Overview (04/23/2022): Lisinopril 5 mg started 07/[address] Nunn in pedi cardiology. 07/10 - BP continues with mild elevation. Dr Nunn increased lisinopril to 10 mg. 10/10 - BP still in mild hypertensive range. Dr Nunn added 12.5 mg hydrochlorothiazide to the lisinopril. 12/10 - At this point refusing all meds. 03/23/19: BP in Stage 2 HTN range, Dr. Nunn able to get pt's verbal agreement to resume Lisinopril 10 and HCTZ 12.5 QD- RTC 2 mos 05/2019: Improved compliance reported Dr Nunn- recommended ABPM 08/29/2020: BP WNL despite pt off meds again since 04/2020: BP in 140/80s during recent [facility] admit for LE numbness and ataxia- MRI suggesting mild microvascular disease- referred back to [facility] Assessment & Plan (04/23/2022 12:52 PM EST): Brandon asymptomatic with BP 150/90, remembering his Lisinopril/HCT tablet about 2- 3/7 days despite prepared pill tray. Encouraged use of cell phone alarm. Followed by Dr Nunn/[facility] in past, overdue for follow up, and needs transfer to adult cardiology. Encouraged CARLOS. Assessment & Plan (11/28/2020 9:21 AM EDT): Brandon admits the hospitalization was frightening enough to change his mind regarding the risk/benefit ratio of taking daily medication to control his hypertension, willing to return to f/up with [facility]- mother to call for appt. Assessment & Plan (08/29/2020 4:48 PM EDT): Patient has been off his combined lisinopril 10/HCTZ 12.5 since April 2019, however blood pressure within normal limits today. Strongly encouraged return to regular [facility] cardiology care with Dr. Nunn. Class 2 severe obesity with serious comorbidity and body mass index (BMI) of 37.0 to 37.9 in adult 12/21/2016 Overview (08/03/2019): Steady rise in BMI from 50% starting at age 13, currently 98% with upward slope Assessment & Plan (04/23/2022 12:29 PM EST): Return to steady weight gain noted today after encouraging 20 lb wt loss in late 2020 with healthy nutrition and exercise changes abandoned. Encouraged Brandon to resume some active self love and get back to walking his dog and cutting back on the refined sugars.Follow q 2-3 mos Assessment & Plan (08/29/2020 4:47 PM EDT): Wonderful lifestyle improvments with better nutrition and daily exercise with 3 lb wt loss this year, BMI remains elevated at 33.8/above the 99th percentile screening labs discussed/ recommended but declined. 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 Followed by Ar[facility] at [facility]. No SBE prophylaxis Assessment & Plan (08/29/2020 4:49 PM EDT): Patient denies any fatigue, shortness of breath, syncope with exertion, although not exercising regularly beyond walking recently. Strongly encouraged to know what to resume regular annual follow-up with [facility] versus adult cardiology. Autism spectrum disorder 10/09/2012 Overview (08/29/2020): High functioning, diagnosed 2017? DDS since 2018? SSI? Anxiety with depression 01/28/2012 Overview (08/29/2020): 03/12 - With comorbid ADHD and behavior problems,S/p repeated partial hospitalizations,03/2015 and 07/2018. Treated with multiple unsuccessful medication trials Sertraline 150 daily, Trazodone, Depakote, Seroquel. 2018 - Followed by Domenico Hunt NP in [facility]. Not participating well in school . He attends [employer] school and he goes but not doing any work. 04/2019:Domenico Hunt NP [facility]-off all medications and declining therapy Assessment & Plan (08/29/2020 4:46 PM EDT): Patient self discontinued all of his Mood stabilizing medications in 2019, due to side effect concerns, is no longer seeing his behavioral health provider at [facility],and currently declines medical intervention. Content with self management strategies at this time, continue to monitor and encourage Brandon towards improved mental and behavioral health. Attention deficit hyperactivity disorder 011 Overview (08/29/2020): With significant behavior issues, many suspensions at school. Seen at [facility]. 01/09 - Taking Depakote 250am, 350pm, sertraline 100, clonidine 0.1 in am only. 05/10 - Still very agitated and not doing school work, Leaving school early. Seroquel 12.5 mg prn agitation and increased Trazadone for sleep to 100 mg HS. 04/2019: Last f/up with [facility]- pt off all meds and refusing further follow-up Assessment & Plan (08/29/2020 4:44 PM EDT): Patient self discontinued all of his ADHD medications in 2020, due to side effect concerns, and currently declines medical intervention. Seasonal and perennial aller gic rhinoconjunctivitis of both eyes 06/30/2009 Overview (08/28/2020): Nasal and eye symptoms- worse in summer, but all seasons Assessment & Plan (08/29/2020 4:50 PM EDT): Moderate symptoms at present, pt requesting daily long-acting antihistamine therapy Resolved Problems Problem Noted Date Diagnosed Date Resolved Date Counseling and coordination of care 09/02/2020 07/01/2021 Overview (01/03/2021): 09/02/2020 KT Outreach to mother with plan: 1. f/up with family navigator at the [facility] RE:Age of Majority supports ,School Plan,Community support programs and resources 2. Enroll with [facility] to learn more about what is available for Brandon now that he has turned 19. Oppositional defiant disorder 08/29/2020 04/23/2022 Hypovitaminosis D 05/03/2018 04/22/2022 Overview (08/29/2020): 05/10 - Vit D level was 9.9 - rx 1,000 IU QD Assessment & Plan (08/29/2020 4:52 PM EDT): Borderline calcium and vitamin D intake by diet history, however Brandon declines blood work for vitamin D assessment today, encouraged increased intake or OTC vitamin D supplement Acne vulgaris 03/01/2017 05/02/2018 Mild intermittent asthma without complication 12/21/19 17 05/02/2018 Immunizations Immunization Administration Dates Next Due DTaP 5 12/10/2005, 4,05/30/2002,04/07,02/03/2002 H1N1 03/13/2009,12/31/2008 HPV Vaccine 9 Valent 09/19/2014 HPV, Quadrivalent 05/11/2014,03/21/2014 Hep A, ped/adol 09/22/2013,03/09/2013 Hep B, ped/adol 08/24/2002,05/30/2002,2001 Hib (PRP-T) 06/07/2003, 3,04/07/2002,02/03 IPV 12/10/2005, 3,04/07/2002,02/03 Influenza Split 12/07/2011,01/14/2011,01/14/2010 Influenza, injectable, quadrivalent 03/28/2015,1 03/08/2013 Influenza, injectable, quadr ivalent, preservative free 05/02/2018,12/21/2016,03/09/2013 Influenza, injectable, trivalent 12/28/2007,11/22,12/12/2003 MMR 12/10/2005,2002 Meningococcal B Trumenba 04/22/2022 Meningococcal Conj (Menactra) MCV4P 05/02/2018,0 03/21/2014 Pneumococcal Conjugate 12/12/2003,2002,04/07/2002,02/03 Tdap 03/21/2014 Varicella 12/02/2006,2002 Family History Medical History Relation Name Comments No Known Problems Brother Kadie Relation Name Status Comments Brother Kadie Alive Father Bernice Alive Father: Asthma Maternal Grandmother Materna l grandmother: ADD/ADHD Mother Saida Alive Mother: Migrain es, Elevated cholesterol, Obesity Other Family history of Obesity, Family history of *Heart Disease, Family history of Asthma, Family history of *CVA/Stroke, Family history of Sudden /[place] under 55, Family history of Hyperlipidemia, Family history of Diabetes mellitus, Family history of Migraines, No family history of *Dental caries Paternal Grandfather Paterna l grandfather: Sudden /[place] under age 55 Social History Tobacco Use Types Packs/Day Years Used Date Smoking Tobacco: Never Smokeless Tobacco: Never Tobacco Cessation:Counseling Given: Yes Comments:Never smoker Alcohol Use Standard Drinks/Week Comments [...] PM EST Sexual Orientation Not on file Last Filed Vital Signs Vital Sign Reading Time Taken Comments Blood Pressure 150/90 04/22/2022 3:29 PM EST Pulse 87 04/22/2022 3:29 PM EST Temperature 35.7 ??C (96.3 ??F) 08/28/2020 9:10 AM ED T Respiratory Rate - - Oxygen Saturation 95% 06/30/2009 12:00 AM EDT Inhaled Oxygen Concentration - - Weight 120 kg (263 lb 12.8 oz) 04/22/2022 3:29 P M EST Height 179.1 cm (5' 10.5 ) 04/22/2022 3:29 PM ES T Body Mass Index 37.32 04/22/2022 3:29 PM EST Plan of Treatment Health Maintenance Due Date Last Done Comments Men B Vaccine (2 of 2 - Trum enba SCDM 2-dose series) 10/23/2022 04/22/2022 Influenza Vaccines (#1) 2023 05/03/19 19, 12/21/2016, 03/28/2015, Additional history exists COVID-19 Vaccine (1 - 2023-2 5 season) 2023 DTaP,Tdap,and Td Vaccines (7 - Td or Tdap) 03/21/2024 03/21/2014, 12/10/2005, 06/07/2003, Additional history exists Hepatitis B Vaccines Completed 08/24/2002, 05/30/2002, 2001 HIB Vaccines Completed 06/07/2003, 0 09/2002, 04/07/2002, Additional history exists Pneumococcal Vaccine Completed 12/12/2003, 05/30/2002, 04/07/2002, Additional history exists IPV Vaccines Completed 12/10/2005, 04/2002, 04/07/2002, Additional history exists MMR Vaccines Completed 12/10/2005, 2002 Varicella Vaccines Completed 12/02/2006, 2002 Hepatitis A Vaccines Completed 09/22/2013, 03/09/19 14 HPV Vaccines Completed 09/19/2014, 04/23, 03/21/2014 Meningococcal Vaccine Completed 05/02/2018, 015
--- OUTSIDE RECORDS SUMMARY | 2024-04-18 09:42 | XMS_ITS | Encounter Summary ---
Author Organization [facility] Address [address] [place] [id number] Phone Care Team Providers Care Spinner Frame Name Role Phone Provider, Jhonatan ARAMBULA Primary Care Provider [phone] Encounter Details Date Type Department Care Team (Late st Contact Info) Description 07/19/2012 Documentation [facility] [place] [address] [place] [address] Family Medicine, Physician [address] [place] [address] Social History Tobacco Use Types [...] on filedocumented in this encounter Care Teams Spinner Frame Relationship Specialty Start Date End Date Provider, MD Jhonatna [address] [place] [id number] PCP - General Pediatrics 09/30/22 12/22/22 documented as of this encounter
--- OUTSIDE RECORDS SUMMARY | 2024-04-18 09:42 | XMS_ITS | Encounter Summary ---
Author Organization [facility] Address [address] [place] [id number] Phone Care Team Providers Care Commissioner Of Officials Name Role Phone Provider, Jhonatan ARAMBULA Primary Care Provider [phone] Encounter Details Date Type Department Care Team (Late st Contact Info) Description 07/10/2014 Documentation [facility] [address] [place] [address] Family Medicine, Physician [address] [place] [address] Social History Tobacco Use Types [...] on filedocumented in this encounter Care Teams Commissioner Of Officials Relationship Specialty Start Date End Date Provider, MD Jhonatan [address] [place] [address] PCP - General Pediatrics 09/30/22 12/22/22 documented as of this encounter
== END 2024-04-18 09:43 | disposition home or self-care (01) ==
PROVIDERS: PCP Family Medicine; Visit Provider Family Medicine
DX: Z00.00 Encounter for general adult medical examination without abnormal findings (principal); I10 Essential (primary) hypertension; R74.01 Elevation of levels of liver transaminase levels; E78.00 Pure hypercholesterolemia, unspecified; E78.6 Lipoprotein deficiency

== ENCOUNTER → 2024-04-18 08:58 | Outpatient (BNVA) | payer OTHER, SELFPAY | PROVIDERS: PCP Family Medicine; Visit Provider Family Medicine | DX: Z00.00 Encounter for general adult medical examination without abnormal findings (principal); I10 Essential (primary) hypertension; R74.01 Elevation of levels of liver transaminase levels; E78.00 Pure hypercholesterolemia, unspecified; E78.6 Lipoprotein deficiency | CPT/HCPCS: 96127 ==

== ENCOUNTER 2024-05-13 07:05 | Outpatient (REF) | payer OTHER, SELFPAY ==
[2024-05-13 09:18] LABS: Alanine Aminotransferase 51 U/L (0-40); Albumin Level 4.6 g/dL (3.5-5.0); Alkaline Phosphatase 103 U/L (39-117); Anion Gap 13 (12-20); Aspartate Amino Transferase 23 U/L (5-37); Bilirubin Total 0.7 mg/dL (0.0-1.0); Blood Urea Nitrogen 17 mg/dL (9-16); Calcium 9.3 mg/dL (8.4-10.2); Carbon Dioxide 22 mmol/L (22-29); Chloride 108 mmol/L (96-108); Cholesterol 123 mg/dL (<200); Estimated Glomerular Filt Rate > 60; Glucose Fasting 83 mg/dL (60-99); HDL Cholesterol 28 mg/dL (>40); LDL Cholesterol Calculated 81 mg/dL (<100); Potassium 3.6 mmol/L (3.3-5.1); Sodium 139 mmol/L (135-145); Total Protein 7.8 g/dL (6.5-8.0); Triglycerides 73 mg/dL (<150)
== END 2024-05-13 07:06 | disposition home or self-care (01) ==
LOC: HO.LAB 07:05
PROVIDERS: PCP Family Medicine; Visit Provider Family Medicine
DX: Z00.00 Encounter for general adult medical examination without abnormal findings (principal); E78.00 Pure hypercholesterolemia, unspecified; R74.01 Elevation of levels of liver transaminase levels
CPT/HCPCS: 36415; 80053; 80061

== ENCOUNTER 2024-05-18 15:10 | Outpatient (REF) | payer OTHER, SELFPAY ==
[2024-05-18 15:49] LABS: Creatinine Urine 151.92 mg/dL; Microalbum/Creatinine Ratio Ur 9.2 ug/mg cr (<30)
== END 2024-05-18 15:11 | disposition home or self-care (01) ==
LOC: HO.LNP 15:10
PROVIDERS: Visit Provider Family Medicine
DX: I10 Essential (primary) hypertension (principal)
CPT/HCPCS: 82043; 82570

== ENCOUNTER 2024-05-19 15:00 | Outpatient (AMB) | payer OTHER, SELFPAY ==
--- NOTE | 2024-05-19 14:57 | A.OFFPC_ITS ---
Intake Visit Reasons: f/u liver enzymes/ultrasound via telemedicine Allergies No Known Allergies Allergy (Verified 05/19/24 14:58) Medication List - Last Reconciled 05/19/24 by Óscar Galaviz MD atorvastatin 10 mg PO DAILY 90 days lisinopril-hydrochlorothiazide 10-12.5 mg 1 tab PO DAILY 90 days Tobacco use date assessed: 04/18/24 Dental Screening Dental Screen Date: 04/18/24 HPI f/u liver enzymes/ultrasound via telemedicine HPI Details Patient?presents?by?telemedicine?to?review?elevated?liver?enzymes,?hyperlipidemi a?and?weight. He?says?that?he?has?been?exercising?more?but?not?sure?if?he?has?lost?any?weight. ??He?notes?that?he?has?been?working?on?improving?his?diet. He?is?taking?atorvastatin?as?prescribed. Reviewed?labs?patient: LDL?cholesterol now?81. HDL?cholesterol?still?20 ALT?decreased?from?100?him?to?51 No?new?complaints.??Patient?feels?well [facility] Medical History ADHD Subaortic membrane HTN (hypertension) Surgical History [place] teeth extracted Family History Father Asthma Maternal Grandfather Asthma Other Diabetes FH: mental illness High blood pressure Social History Household Members: Family Housing: House Do you presently have visiting nurse or other home services: No Alcohol intake: never Patient Tobacco Use Status: Never used Tobacco e-Cigarette/Vaping Use: Former Use Second Hand Smoke Exposure: No service: No Current occupational status: student Cognitive needs: Yes (autism/ADHD ) Hearing needs: No Vision needs: Yes Questionnaire Thrive Questionnaire Date Thrive assessed: 04/18/24 SILVIO-7 AMB Questionnaire SILVIO-7 Date SILVIO - 7 assessed: 04/18/24 Source: Developed by Drs. Julio C Grullon, Ivelisse Beach, Roni Stout and colleagues, with an educational armando from [employer]. Review of Systems Const Denies chills, Denies fatigue, Denies fever(s), Denies headache(s) and Denies weakness ENT Denies dizziness and Denies headache(s) Card Denies chest pain, Denies lightheadedness, Denies dyspnea and Denies other (Palpitations) Resp Denies cough, Denies dyspnea, Denies wheezing and Denies other ( shortness of breath) Musc Denies numbness and Denies tingling Neuro Denies dizziness, Denies headache(s), Denies numbness, Denies tingling, Denies paresthesias and Denies weakness Psych Denies anxiety and Denies depression Endo Denies fatigue Aller/Immun Denies wheezing Physical exam (Primary Care) Tobacco/Smoking Status: Tobacco use Status Tobacco use date assessed 04/18/24 05/19/24 14:59 Patient Tobacco Use Status Never used Tobacco 05/19/24 14:59 e-Cigarette/Vaping Use Former Use 05/19/24 14:59 Thrive Assessment: Date of Thrive Assessment Date Thrive assessed 04/18/24 05/19/24 14:59 Telehealth Telehealth Telehealth Platform: Telephone Location of provider rendering services: practice address Location of patient: address on file Patient Identification confirmed using: Name, : Yes Telehealth method: voice only Patient verbally consented to treatment: Yes Patient verbally consented to billing insurance company: Yes Patient informed of any privacy concerns related to visit: Yes Minutes spent on Phone/Video with Pt.: 5 Coding Level of Care Code Tele Est Pt Level 2 (83389) Diagnoses Elevated LDL cholesterol level E78.00 Low HDL (under 40) E78.6 Obesity E66.9 Elevated ALT measurement R74.01 Assessment & Plan Assessment & Plan (1) Elevated LDL cholesterol level: Code(s): E78.00 - Pure hypercholesterolemia, unspecified Category: Medical Plan: Had?started?atorvastatin. LDL?cholesterol?now?at?goal?of?less?than?100 Continue?atorvastatin?as?prescribed (2) Low HDL (under 40): Code(s): E78.6 - Lipoprotein deficiency Category: Medical Plan: HDL?is?still?too?low Encouraged?exercise?and?[place]?3?fatty?acids?in?diet (3) Obesity: Code(s): E66.9 - Obesity, unspecified Category: Medical Plan: Encouraged?weight?loss?through?exercise?and?diet (4) Elevated ALT measurement: Code(s): R74.01 - Elevation of levels of liver transaminase levels Category: Medical Plan: Liver?enzyme?significantly?decreased?from?100?down?to?51 Nearly?at?goal?now. Encouraged?weight?loss?and?good?hydration Will?continue?to?monitor Orders: Orders Lipid Panel Today E78.00 - Pure hypercholesterolemia, unspecified, Z00.00 - Encounter for general adult medical examination without abnormal findings Comprehensive [place]. Panel Fast Today R74.01 - Elevation of levels of liver transaminase levels, Z00.00 - Encounter for general adult medical examination without abnormal findings
== END 2024-05-19 17:05 | disposition home or self-care (01) ==
LOC: HO.HMCFM 15:00
PROVIDERS: PCP Family Medicine; Visit Provider Family Medicine
DX: E78.00 Pure hypercholesterolemia, unspecified (principal); E78.6 Lipoprotein deficiency; E66.9 Obesity, unspecified; R74.01 Elevation of levels of liver transaminase levels